=== PATIENT | male | born 1985 | race Native Hawaiian/Other Pacific Islander ===

== ENCOUNTER 2019-01-09 02:46 | Emergency (ER) | payer OTHER ==
[~2019-01-09] VITALS: Ht 180.3 cm; Wt 129.3 kg
[2019-01-09 04:30] VITALS: BP 160/57; TEMP 98
== END 2019-01-09 04:33 | disposition home or self-care (01) ==
LOC: ED 02:46
PROC: 3E1CX8Z Irrigation of Eye using Irrigating Substance (ICD-10-PCS; principal; 2019-01-09)
PROC: 08C0XZZ Extirpation of Matter from Right Eye, External Approach (ICD-10-PCS; 2019-01-09)
DX: T15.91XA Foreign body on external eye, part unspecified, right eye, initial encounter (principal)
CPT/HCPCS: 99283